=== PATIENT | female | born 2000 | race Caucasian/White ===

== ENCOUNTER 2020-06-25 13:04 | Emergency (ER) | payer SELFPAY ==
--- NOTE | 2020-06-25 13:38 | ER Document Report ---
ED Medical Screen (RME) - General Chief Complaint: Blood Pressure Problem Stated Complaint: DIZZY,LIGHTHEADED Time Seen by Provider: 06/25/20 13:33 Mode of Arrival: Ambulatory Information source: Patient Notes: 19-year-old female patient presents emergency department concerns for high blood pressure, dizziness, palpitations, chest pressure and generalized fatigue. Patient reports symptoms have been going on for the last few weeks. She does report that she has had high blood pressure for as long as she can remember but she has never formally been treated for it other than when she was . Patient alert, oriented, no acute distress noted. I have greeted and performed a rapid initial assessment of this patient. A comprehensive ED assessment and evaluation of the patient, analysis of test results and completion of the medical decision making process will be conducted by additional ED providers. I have specifically instructed the patient or family members with the patient to immediately return to any nursing staff should anything change in the patient's condition or with their chief complaint. Physical Exam - Vital signs Vitals: Temp Pulse Resp BP Pulse Ox 98.1 F 100 16 151/111 H 100 06/25/20 13:33 06/25/20 13:33 06/25/20 13:33 06/25/20 13:33 06/25/20 13:33 Course - Vital Signs Vital signs: Temp Pulse Resp BP Pulse Ox 98.1 F 100 16 151/111 H 100 06/25/20 13:33 06/25/20 13:33 06/25/20 13:33 06/25/20 13:33 06/25/20 13:33
[2020-06-25 14:10] LABS: ABSOLUTE EOSINOPHILS # (AUTO) 0.1 10^3/uL (0.0-0.6); ABSOLUTE LYMPHOCYTES (AUTO) 1.6 10^3/uL (0.5-4.7); ABSOLUTE MONOCYTES (AUTO) 0.4 10^3/uL (0.1-1.4); ABSOLUTE NEUT (AUTO) 2.6 10^3/uL (1.7-8.2); BASOPHILS % (AUTO) 0.8 % (0-2); EOSINOPHILS % (AUTO) 1.7 % (0-6); HEMATOCRIT 40.2 % (36.0-47.0); HEMOGLOBIN 13.9 g/dL (12.0-15.5); LYMPHOCYTES % (AUTO) 34.3 % (13-45); MEAN CORPUSCULAR HEMOGLOBIN 30.4 pg (27.0-33.4); MEAN CORPUSCULAR HGB CONC 34.5 g/dL (32.0-36.0); MEAN CORPUSCULAR VOLUME 88 fl (80-97); MONOCYTES % (AUTO) 8.5 % (3-13); PLATELET COUNT 236 10^3/uL (150-450); RED BLOOD COUNT 4.55 10^6/uL (3.72-5.28); SEGMENTED NEUTROPHILS % (AUTO) 54.7 % (42-78); TOTAL CELLS COUNTED % (AUTO) 100 %; WHITE BLOOD COUNT 4.8 10^3/uL (4.0-10.5)
[2020-06-25 14:37] LABS: ALBUMIN 4.7 g/dL (3.5-5.0); ALKALINE PHOSPHATASE 39 U/L (38-126); ANION GAP 12 (5-19); ASPARTATE AMINO TRANSFERASE 20 U/L (14-36); BILIRUBIN,DIRECT 0.2 mg/dL (0.0-0.4); BILIRUBIN,TOTAL 0.4 mg/dL (0.2-1.3); BLOOD UREA NITROGEN 13 mg/dL (7-20); CALCIUM 9.9 mg/dL (8.4-10.2); CARBON DIOXIDE 26 mmol/L (22-30); CHLORIDE 103 mmol/L (98-107); GLUCOSE 94 mg/dL (75-110); POTASSIUM 4.9 mmol/L (3.6-5.0); TOTAL PROTEIN 7.4 g/dL (6.3-8.2)
[2020-06-25 16:29] VITALS: BP 152/95
--- NOTE | 2020-06-25 16:36 | ER Document Report ---
HPI - HPI Time Seen by Provider: 06/25/20 13:33 Pain Level: 5 Notes: 19-year-old female patient presents emergency department concerns for high blood pressure, dizziness, palpitations, chest pressure and generalized fatigue. Patient reports symptoms have been going on for the last few weeks. She does report that she has had high blood pressure for as long as she can remember but she has never formally been treated for it other than when she was . - ROS Systems Reviewed and Negative: Yes All other systems reviewed and negative - see HPI - CONSTITUTIONAL Constitutional: DENIES: Fever, Chills - NEURO Neurology: REPORTS: Headache Past Medical History - General Information source: Patient - Social History Smoking Status: Never Smoker Frequency of alcohol use: None Drug Abuse: None Family History: Reviewed & Not Pertinent - Past Medical History Cardiac Medical History: Reports: Hx Hypertension Past Surgical History: Reports: Hx Orthopedic Surgery - left arm surgery Vertical Provider Document - CONSTITUTIONAL Notes: PHYSICAL EXAMINATION: GENERAL: Well-appearing, well-nourished and in no acute distress. HEAD: Atraumatic, normocephalic. EYES: Pupils equal round extraocular movements intact, conjunctiva are normal. ENT: Nares patent NECK: Normal range of motion LUNGS: No respiratory distress Musculoskeletal: Normal range of motion NEUROLOGICAL: Normal speech, normal gait. PSYCH: Normal mood, normal affect. SKIN: Warm, Dry, normal turgor, no rashes or lesions noted. Course - Re-evaluation Re-evalutation: Patient's work-up today has been reassuring. Her blood pressure is 150s over 110s. I have advised that the patient needs to follow-up with primary care for closer monitoring of her blood pressure. Patient is agreeable to this plan. The patient's emergency department workup and current diagnosis were explained to the patient and or family. Follow-up instructions were provided. Medications if prescribed were discussed. Instructions for when to return to the emergency department including specific worrisome symptoms were discussed with the patient and/or family. - Vital Signs Vital signs: Temp Pulse Resp BP Pulse Ox 98.2 F 72 16 152/95 H 100 06/25/20 16:33 06/25/20 16:33 06/25/20 16:33 06/25/20 16:28 06/25/20 16:33 - Laboratory Result Diagrams: 06/25/20 13:47 06/25/20 13:47 - EKG Interpretation by Me EKG shows normal: Sinus rhythm - Sinus rhythm, rate of 70, normal axis, normal intervals, QTC 423, no ST segment elevations or depressions. No previous EKG to compare to. Discharge - Discharge Clinical Impression: Hypertension Qualifiers: Hypertension type: unspecified Qualified Code(s): I10 - Essential (primary) hypertension Condition: Stable Disposition: HOME, SELF-CARE Additional Instructions: As discussed please follow-up with primary care and cardiology. Please take medication as prescribed. Check your blood pressure each morning. If your blood pressure is normal that is less than or equal to 120/80 do not take the blood pressure medication. Take your blood pressure again midday and record this. Take the recordings to your primary care and her cardiology team for their review. Return to the emergency department with any new or worsening symptoms. Prescriptions: Amlodipine Besylate [Norvasc 2.5 mg Tablet] 2.5 mg PO DAILY #30 tablet Referrals: YUMIKO STAPLETON MD [ACTIVE STAFF] - Follow up as needed
--- NOTE | 2020-06-25 19:53 | EKG REPORT ---
SEVERITY:- NORMAL ECG - SINUS RHYTHM : Confirmed by: Brittni Gaines 25-Jun-2020 19:53:07
== END 2020-06-25 16:41 | disposition home or self-care (01) ==
LOC: ER 13:04
DX: I10 Essential (primary) hypertension (principal); R42 Dizziness and giddiness; R00.2 Palpitations; R07.89 Other chest pain; R53.83 Other fatigue; R51.9 Headache, unspecified
CPT/HCPCS: 36415; 80053; 84443; 84484; 85025; 93005; 93010; 99284